=== PATIENT | male | born 1955 | race Caucasian/White ===

== ENCOUNTER 2017-03-17 14:06 | Observation (INO) | payer MEDICARE, OTHER ==
[~2017-03-17] VITALS: Ht 170.2 cm; Wt 90.0 kg
[~2017-03-17 14:06] MED LIST: ACET-1359 PO; ALLO300T46; AMLO-147 PO; BENA40TA54 PO; FAMO40OR PO; GABA-526 PO; HYD25 PO; LEVE500T8 PO; OMEG-135 PO; PRAV20TA63 PO; SERT-165 PO
[2017-03-17 14:28] LABS: ADD SCAN DIFF NO
[2017-03-17 14:32] LABS: BASOPHILS % 0.4 % (0.0-2.0); EOSINOPHILS # 0.2 10^3/ul (0.0-0.5); EOSINOPHILS % 2.9 % (0.0-7.0); HEMATOCRIT 41.3 % (42.0-52.0); HEMOGLOBIN 13.9 g/dl (14.0-18.0); LYMPHOCYTES # 1.7 10^3/ul (0.8-2.9); MEAN CORPUSCULAR HEMOGLOBIN 29.5 pg (29.0-33.0); MEAN CORPUSCULAR HGB CONC 33.7 g/dl (32.0-37.0); MEAN CORPUSCULAR VOLUME 87.7 fl (82.0-101.0); MEAN PLATELET VOLUME 10.6 fl (7.4-10.4); MONOCYTE # 0.5 10^3/ul (0.3-0.9); MONOCYTES % 6.1 % (0.0-11.0); NEUTROPHIL # 5.1 10^3/ul (1.6-7.5); NEUTROPHILS % 67.3 % (39.0-77.0); PLATELET COUNT 194 10^3/UL (140-415); RED BLOOD COUNT 4.71 10^6/ul (4.70-6.10); RED CELL DISTRIBUTION WIDTH 13.9 % (11.5-14.5); WHITE BLOOD COUNT 7.6 10^3/ul (4.8-10.8)
--- NOTE | 2017-03-17 14:46 | RADRPT ---
PROCEDURE: Chest x-ray CLINICAL INDICATION: Chest pain TECHNIQUE: Chest single view COMPARISON: 10/03/2009 FINDINGS: The heart is normal in size. The pulmonary vessels are normal in caliber. There is chronic reticul ar scarring in the right upper lobe and left lower lobe with linear areas of calcification. This ma y be related to old granulomatous disease. No acute infiltrates are identified. Costophrenic angle s are sharp and the bony thorax is unremarkable. IMPRESSION: 1. Stable linear and reticular scarring in the right upper lobe and left lower lobe with calcificat ion. This may be related to old granulomatous disease. 2. No acute cardiopulmonary disease. 3. No significant change RPTAT: HH .Ej Mitchell MD, MD Date Time Electronically viewed and signed by .Ej Mitchell MD, on 03/17/2017 14:46 .W/
[2017-03-17 14:49] LABS: ANION GAP 13 (8-16); BLOOD UREA NITROGEN 16 mg/dl (7-20); CALCIUM 9.1 mg/dl (8.4-10.2); CARBON DIOXIDE 23 mmol/L (21-31); CHLORIDE 107 mmol/L (97-110); GLUCOSE 161 mg/dl (70-220); POTASSIUM 3.6 mmol/L (3.5-5.1); SODIUM 139 mmol/L (135-144)
[2017-03-17 14:50] LABS: INR 0.94; PROTIME 12.6 Sec (12.2-14.2)
[2017-03-17 14:51] LABS: PARTIAL THROMBOPLASTIN TIME 29.7 Sec (25.0-35.0)
[2017-03-17 15:05] LABS: B-TYPE NATRIURETIC PEPTIDE < 11 PG/ML (0-125); TROPONIN-I < 0.012 ng/ml (0.00-0.12)
[2017-03-17] MEDS ORDERED: FAMO20TA18 PO (15:14)
[2017-03-17] MEDS ORDERED: ALLO300T2 PO (15:15)
[2017-03-17] MEDS ORDERED: CYAN500T46 PO (15:15)
[2017-03-17] MEDS ORDERED: CYCL-319 PO (15:16)
[2017-03-17] MEDS ORDERED: BENA40TA41 PO (15:16)
[2017-03-17] MEDS ORDERED: AMLO-147 PO (15:17)
[2017-03-17] MEDS ORDERED: GABA300C16 PO (15:17)
[2017-03-17] MEDS ORDERED: ATOR20TA38 PO (15:20)
[2017-03-17] MEDS ORDERED: SERT-165 PO (15:20)
[2017-03-17] MEDS ORDERED: BUPR75TA9 PO (15:21)
[2017-03-17] MEDS ORDERED: LEVE10006 PO (15:23)
[2017-03-17] MEDS ORDERED: TRAZ50TA18 PO (15:23)
[2017-03-17] MEDS ORDERED: ASPIRIN 81 MG TAB PO ONE (16:00)
--- NOTE | 2017-03-17 16:18 | ERA ---
ER Documentation Chief Complaint Date/Time DATE: 03/17/17 TIME: 16:17 Chief Complaint BIBA FOR NON RADIATING CP HPI This is a 61-year-old male with a history of hypertension hyperlipidemia who presents to the emergency room after being brought in by ambulance for chest pain. The patient localizes chest pain to the center of his chest and describes as a sharp pain with no radiation. He denies any shortness of breath , diaphoresis or nausea associated with this. The patient came to the emergency room today for evaluation. Patient was given aspirin 160 mg in route , and sublingual nitro with mild relief of his pain. ROS All systems reviewed and are negative except as per history of present illness. Medications Home Meds Reported Medications Levetiracetam* (Levetiracetam*) 1,000 Mg Tablet, 2000 MG PO BID, TAB 03/17/17 Trazodone Hcl* (Desyrel*) 50 Mg Tab, 25 MG PO QHS, #30 TAB 03/17/17 Bupropion Hcl* (Bupropion Hcl*) 75 Mg Tablet, 75 MG PO DAILY, TAB 03/17/17 Sertraline Hcl* (Sertraline Hcl*) 100 Mg Tablet, 100 MG PO DAILY, #30 TAB 03/17/17 Atorvastatin Calcium* (Atorvastatin Calcium*) 20 Mg Tablet, 20 MG PO QHS, #30 TAB 03/17/17 Gabapentin* (Gabapentin*) 300 Mg Capsule, 300 MG PO TID, #90 CAP 03/17/17 Amlodipine Besylate* (Amlodipine Besylate*) 10 Mg Tablet, 10 MG PO DAILY, #30 TAB 03/17/17 Benazepril Hcl* (Benazepril Hcl*) 40 Mg Tablet, 40 MG PO DAILY, #30 TAB 03/17/17 Cyclobenzaprine Hcl* (Cyclobenzaprine Hcl*) 10 Mg Tablet, 10 MG PO TID Y for PRN , #90 TAB 03/17/17 Allopurinol* (Allopurinol*) 300 Mg Tablet, 300 MG PO DAILY, TAB 03/17/17 Cyanocobalamin* (Vitamin B12*) 500 Mcg Tab, 500 MCG PO DAILY, TAB 03/17/17 Famotidine* (Famotidine*) 20 Mg Tablet, 20 MG PO BID, #60 TAB 03/17/17 Discontinued Reported Medications Gabapentin* (Gabapentin*) 600 Mg Tablet, PO TID 08/20/13 Levetiracetam* (Levetiracetam*) 500 Mg Tablet, PO DAILY 08/20/13 Benazepril Hcl* (Lotensin*) 40 Mg Tablet, 40 MG PO DAILY 08/20/13 Pravastatin Sodium* (Pravastatin Sodium*) 20 Mg Tablet, 20 MG PO HS 08/20/13 Hydrochlorothiazide* (Hydrochlorothiazide*) 25 Mg Tab, 25 MG PO DAILY 08/20/13 Famotidine* (Famotidine*) 40 Mg/5 Ml Oral.susp, 20 MG PO BID 08/20/13 Amlodipine Besylate* (Amlodipine Besylate*) 10 Mg Tablet, 10 MG PO DAILY 08/20/13 Sertraline Hcl* (Sertraline Hcl*) 100 Mg Tablet, 100 MG PO DAILY 08/20/13 Fish Oil* (Fish Oil*) 1,000 Mg Cap, 1000 MG PO DAILY 08/20/13 Acetaminophen (TYLENOL 500 MG TAB) 500 Mg Tab, 500 MG PO Y 08/20/13 Allopurinol* (Zyloprim*) 300 Mg Tablet 01/16/11 Allergies Allergies: Coded Allergies: No Known Allergy (Unverified , 03/17/17) PMhx/Soc History of Surgery: No Anesthesia Reaction: No Hx Neurological Disorder: Yes (EPILEPSY) Hx Respiratory Disorders: No Hx Cardiac Disorders: Yes (HTN) Hx Psychiatric Problems: No Hx Miscellaneous Medical Probl: Yes (DM , STOMACH CA , ANEMIA ) Hx Alcohol Use: No Hx Substance Use: No Hx Tobacco Use: No Smoking Status: Never smoker Physical Exam Vitals Vital Signs Date Time Temp Pulse Resp B/P Pulse Ox O2 Delivery O2 Flow Rate FiO2 03/17/17 14:24 98.6 91 16 136/93 94 Physical Exam INITIAL VITAL SIGNS: Reviewed by me GENERAL: The patient is well developed and appropriate for usual state of health in no apparent distress HEENT: Pupils equal, round, and reactive to light. EOMI. There is no scleral icterus. NECK: C-spine is soft and supple, there is no meningismus. There is no cervical lymphadenopathy. LUNGS: Clear to auscultation bilaterally. There are no rales, wheezes or rhonchi. HEART: Regular rate and rhythm, no murmurs, clicks, rubs or gallops. ABDOMEN: Soft, non-tender, non-distended. There are bowel sounds in all four quadrants. No rebound or guarding. EXTREMITIES: There is no peripheral cyanosis or edema. No focal swelling or erythema. NEUROLOGICAL: The patient moves all four extremities with 5/5 strength. Cranial nerves II - XII are intact. Normal gait. Alert and oriented SKIN: There is no apparent rash or petechiae. HEME/LYMPHATIC: There is no evidence of excessive bruising or lymphedema. PSYCHIATRIC: The patient does not appear anxious or depressed. Result Diagram: 03/17/17 1420 03/17/17 1420 Results 24 hrs Laboratory Tests Test 03/17/17 14:20 White Blood Count 7.610^3/ul Red Blood Count 4.7110^6/ul Hemoglobin 13.9g/dl Hematocrit 41.3% Mean Corpuscular Volume 87.7fl Mean Corpuscular Hemoglobin 29.5pg Mean Corpuscular Hemoglobin Concent 33.7g/dl Red Cell Distribution Width 13.9% Platelet Count 45625^3/UL Mean Platelet Volume 10.6fl Neutrophils % 67.3% Lymphocytes % 23.0% Monocytes % 6.1% Eosinophils % 2.9% Basophils % 0.4% Nucleated Red Blood Cells % 0.0/100WBC Neutrophils # 5.110^3/ul Lymphocytes # 1.710^3/ul Monocytes # 0.510^3/ul Eosinophils # 0.210^3/ul Basophils # 0.010^3/ul Nucleated Red Blood Cells # 0.010^3/ul Prothrombin Time 12.6Sec Prothrombin Time Ratio 1.0 INR International Normalized Ratio 0.94 Activated Partial Thromboplast Time 29.7Sec Sodium Level 139mmol/L Potassium Level 3.6mmol/L Chloride Level 107mmol/L Carbon Dioxide Level 23mmol/L Anion Gap 13 Blood Urea Nitrogen 16mg/dl Creatinine 0.80mg/dl Glucose Level 161mg/dl Calcium Level 9.1mg/dl Troponin I < 0.012ng/ml B-Type Natriuretic Peptide < 11PG/ML Current Medications Medications (Trade) Dose Ordered Sig/Mark Route PRN Reason Start Time Stop Time Status Last Admin Dose Admin Aspirin (Aspirin) 162 mg ONCE ONCE PO 03/17/17 16:00 03/17/17 16:01 DC Procedures/MDM EKG: Rate/Rhythm: [Normal Sinus Rhythm] QRS, ST, T-waves: [No changes consistent w/ acute ischemia] Impression: [No evidence of ischemia or arrhythmia] Chest X-ray 1V Interpreted by me: Soft Tissue: No acute abnormalities Bones: No acute abnormalities Mediastinum/Cardiac Silhouette/Lungs: [No acute abnormalities] This 61-year-old male presents to the ER for evaluation of chest pain. When I evaluated this patient he was hemodynamically stable. Lab work was obtained including troponin which was negative. Chest x-ray is clear at this time except for scarring in the lung tissue. EKG is nonischemic however given this patient's age, symptoms and risk factors he will be placed in for admission at this time for ACS rule out. He will be admitted under the care of Dr. Mccoy on the telemetry floor. Departure Diagnosis: Primary Impression: Chest pain Condition: YULI Fields DO Mar 17, 2017 16:18
[2017-03-17] MEDS ORDERED: ACETAMINOPHEN 325 MG TAB PO PRN ×2 (16:30→17:00)
[2017-03-17] MEDS ORDERED: ONDANSETRON 4 MG INJ IV PRN ×2 (16:30→17:00)
[2017-03-17] MEDS ORDERED: MAGNESIUM HYDROXIDE 30ML CUP PO PRN (17:00)
[2017-03-17] MEDS ORDERED: HYDROCODONE/APAP (5/325) TAB PO PRN (17:00)
[2017-03-17] MEDS ORDERED: NITROGLYCERIN (SL) 0.4 MG TAB SL PRN (17:00)
[2017-03-17] MEDS ORDERED: BISACODYL (EC) 5 MG TAB PO PRN (17:00)
[2017-03-17] MEDS ORDERED: morphine 2 MG INJ IV PRN (17:00)
[2017-03-17] MEDS ORDERED: NACL 0.9% 3 ML SYG IV SCH (17:00)
--- NOTE | 2017-03-17 17:22 | HP ---
Date/Time of Note Date/Time of Note DATE: 03/17/17 TIME: 17:17 Assessment/Plan VTE Prophylaxis VTE Prophylaxis Intervention: LMWH Lines/Catheters IV Catheter Type (from [facility]): [place] Assessment/Plan Chief Complaint/Hosp Course 1. Chest pain. To rule out acute coronary syndrome. Serial troponins will be ordered. A 2D echocardiogram will be ordered. The patient will be continued on aspirin. Cardiology consult will be obtained. 2. Essential hypertension. The patient's home antihypertensives will be resumed. He will also be started on PRN antihypertensives for any systolic blood pressure readings greater than 160 mmHg. 3. Gout. The patient's allopurinol will be resumed. A serum uric acid level will be obtained. 4. Seizure disorder. The patient's Keppra will be resumed. 5. Chronic back pain. The patient will be provided with adequate pain control. 6. Depression. The patient will be continued on antidepressants. Plan: The patient will be admitted to inpatient telemetry floor. The patient will be started on a low-cholesterol diet. The patient will be started on DVT prophylaxis and gastrointestinal prophylaxis. The patient will remain a full code. Activities will be with assist. The rest of the patient's management will be based on the clinical course and the results of diagnostic studies. Based on the patient's clinical presentation, he most probably requires at least 1 midnight's stay for further management and evaluation of his clinical presentation. The case and management of this patient was fully discussed with . Problems: HPI/ROS Admit Date/Time Admit Date/Time Hx of Present Illness Reason for admission: Chest pain. Consultants 1. Xavier Carballo MD, Cardiology. This is a 61-year-old male with past medical history of essential hypertension, dyslipidemia, obesity, chronic back pain, depression, gout, and seizure disorder who came into the emergency room with chief complaint of chest pain. The patient localizes his chest pain at the center of his chest with no associated radiation. Patient denied any nausea or diaphoresis. However, the patient complained of some dyspnea associated with the same. The patient denied any fevers. He denied any chills. Patient denied any cough. He denied any abdominal pain diarrhea hematochezia dysuria or hematuria. In the emergency room, patient's initial troponins were negative. The patient' s chest x-ray was negative for any acute findings. The patient's solid EKG showed normal sinus rhythm. Patient was treated with aspirin 162 mg in the emergency room. ROS Constitutional: no complaints Eyes: no complaints ENT: no complaints Respiratory: shortness of breath Cardiovascular: chest pain Gastrointestinal: no complaints Genitourinary: no complaints Musculoskeletal: back pain Skin: no complaints Neurologic: no complaints Endocrine: no complaints Lymphatic: no complaints Psychological: depression Immunologic: no complaints PMH/Family/Social Past Medical History Medical History: hypertension, other (depression, gout, chronic back pain, seizure disorder) Social History Alcohol Use: none Smoking Status: Never smoker Drug Use: none Exam/Review of Systems Vital Signs Vitals Vital Signs Date Time Temp Pulse Resp B/P Pulse Ox O2 Delivery O2 Flow Rate FiO2 03/17/17 14:24 98.6 91 16 136/93 94 Exam Exam General: Obese 61 year-old male lying in bed in no apparent distress. HEENT: Normocephalic, atraumatic. Eyes: Anicteric sclerae, conjunctivae clear. ENT: Nasal septum midline, oral mucosa moist. Neck supple, no JVD noticed. Respiratory: Bilaterally clear breath sounds. No use of accessory muscles of respiration. No adventitious breath sounds. Cardiovascular: S1, S2 heard. No murmurs or gallops. Abdomen: Soft, nontender, and nondistended. Bowel sounds positive in all 4 quadrants. Genitourinary: Deferred. Extremities: No cyanosis, no clubbing, no edema. Peripheral pulses palpable. Neurologic: Cranial nerves II through XII grossly intact. The patient is awake, alert, and oriented. Skin: Normal skin turgor. No skin rashes. Labs Result Diagram: 03/17/17 1420 03/17/17 1420 Medications Medications Current Medications Ondansetron HCl (Zofran Inj) 4 mg Q6H PRN IV NAUSEA AND/OR VOMITING; Start 07/24 at 17:00; Status UNV Aspirin (Aspirin) 81 mg DAILY PO ; Start 03/18/17 at 09:00; Status UNV Nitroglycerin (Nitroglycerin (Sl Tab) 0.4 Mg) 1 tab Q5M PRN SL CHEST PAIN; Start 03/17/17 at 17:00; Status UNV Acetaminophen (Tylenol Tab) 650 mg Q6H PRN PO PAIN LEVEL 1-3 OR FEVER; Start at 17:00; Status UNV Acetaminophen/ Hydrocodone Bitart ([place] (5/325)) 1 tab Q6H PRN PO PAIN LEVEL 4 -6; Start 03/17/17 at 17:00; Status UNV Morphine Sulfate (morphine) 2 mg Q4H PRN IV PAIN LEVEL 7-10; Start 03/17/17 at 17:00; Status UNV Magnesium Hydroxide (Milk Of Mag) 30 ml DAILY PRN PO CONSTIPATION; Start at 17:00; Status UNV Bisacodyl (Dulcolax) 5 mg DAILY PRN PO CONSTIPATION; Start 03/17/17 at 17:00; Status UNV Famotidine (Pepcid) 20 mg Q12 PO ; Start 03/17/17 at 21:00; Status UNV Enoxaparin Sodium (Lovenox) 40 mg DAILY SC ; Start 03/18/17 at 09:00; Status UNV Hydralazine HCl (Apresoline) 10 mg Q6H PRN IV SBP>160; Start 03/17/17 at 17:30 ; Status UNV Allopurinol (Zyloprim) 300 mg DAILY PO ; Start 03/18/17 at 09:00; Status UNV Amlodipine Besylate (Norvasc) 10 mg DAILY PO ; Start 03/18/17 at 09:00; Status UNV Atorvastatin Calcium (Lipitor) 20 mg QHS PO ; Start 03/17/17 at 21:00; Status UNV Benazepril HCl (Lotensin) 40 mg DAILY PO ; Start 03/18/17 at 09:00; Status UNV Bupropion HCl (Wellbutrin) 75 mg DAILY PO ; Start 03/18/17 at 09:00; Status UNV Cyanocobalamin (Vitamin B12) 500 mcg DAILY PO ; Start 03/18/17 at 09:00; Status UNV Cyclobenzaprine HCl (Flexeril) 10 mg TID PRN PO PRN; Start 03/17/17 at 17:30; Status UNV Gabapentin (Neurontin) 300 mg TID PO ; Start 03/17/17 at 21:00; Status UNV Levetiracetam (Keppra) 2,000 mg BID PO ; Start 03/17/17 at 21:00; Status UNV Sertraline HCl (Zoloft) 100 mg DAILY PO ; Start 03/18/17 at 09:00; Status UNV Trazodone HCl (Desyrel) 25 mg QHS PO ; Start 03/17/17 at 21:00; Status UNV Procedures Procedures CXR IMPRESSION: 1. Stable linear and reticular scarring in the right upper lobe and left lower lobe with calcification. This may be related to old granulomatous disease. 2. No acute cardiopulmonary disease. 3. No significant change CHRISTY BARROW NP Mar 17, 2017 17:22
[2017-03-17] MEDS ORDERED: CYCLOBENZAPRINE 10 MG TAB PO PRN (17:30)
[2017-03-17] MEDS ORDERED: hydrALAzine 20 MG INJ IV PRN (17:30)
[2017-03-17 19:12] VITALS: PULSE 64
--- NOTE | 2017-03-17 19:16 | CONS ---
Date/Time of Note Date/Time of Note DATE: 03/17/17 TIME: 19:08 Assessment/Plan Assessment/Plan Chief Complaint/Hosp Course Chest pain: Atypical, right sided pulsation. EKG with RBBB and no ischemic changes. Initial trop negative. Would rule out and check an echo, otherwise no testing indicated. 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 An parts interpreter was used. The pt is tearful throughout the interview. When asked why he came in, he first started to complain of his right knee pain and meniscal issues. Then he mentioned that he cannot open his eyes and when he does , he sees blurry and his eyes shut. Then he mentioned that he uses BiPAP at nights and that he is always SOB. He also mentioned right sided chest wall "pulsations". He also mentioned that the blurry vision started after he had a seizure today. However he tells me that he started to have convulsions and was completely aware of what was going on and had to hold on to a nearby person so he wouldnt fall. per hPI Eyes: no complaints ENT: no complaints Respiratory: shortness of breath Cardiovascular: chest pain Gastrointestinal: no complaints Genitourinary: no complaints Musculoskeletal: back pain Skin: no complaints Neurologic: no complaints Lymphatic: no complaints Psychological: depression Immunologic: no complaints Past Medical History per HPI Medical History: hypertension, other (depression, gout, chronic back pain, seizure disorder) Social History Alcohol Use: none Smoking Status: Never smoker Drug Use: none Exam/Review of Systems Vital Signs Vitals Vital Signs Date Time Temp Pulse Resp B/P Pulse Ox O2 Delivery O2 Flow Rate FiO2 03/17/17 18:08 72 20 127/85 98 Room Air 03/17/17 14:24 98.6 Exam Constitutional: alert, oriented Psych: nl mood/affect, no complaints Head: atraumatic, normocephalic Eyes: nl conjunctiva Neck: No jvd Respiratory: clear to auscultation, No crackles/rales Cardiovascular: regular rate and rhythm, No edema Gastrointestinal: non-tender, soft Neurological: nl speech, No nl mental status Results Result Diagram: 03/17/17 1420 03/17/17 1420 Results 24 hrs Laboratory Tests Test 03/17/17 14:20 White Blood Count 7.6 Red Blood Count 4.71 Hemoglobin 13.9 L Hematocrit 41.3 L Mean Corpuscular Volume 87.7 Mean Corpuscular Hemoglobin 29.5 Mean Corpuscular Hemoglobin Concent 33.7 Red Cell Distribution Width 13.9 Platelet Count 194 Mean Platelet Volume 10.6 H Neutrophils % 67.3 Lymphocytes % 23.0 Monocytes % 6.1 Eosinophils % 2.9 Basophils % 0.4 Nucleated Red Blood Cells % 0.0 Neutrophils # 5.1 Lymphocytes # 1.7 Monocytes # 0.5 Eosinophils # 0.2 Basophils # 0.0 Nucleated Red Blood Cells # 0.0 Prothrombin Time 12.6 Prothrombin Time Ratio 1.0 INR International Normalized Ratio 0.94 Activated Partial Thromboplast Time 29.7 Sodium Level 139 Potassium Level 3.6 Chloride Level 107 Carbon Dioxide Level 23 Anion Gap 13 Blood Urea Nitrogen 16 Creatinine 0.80 Glucose Level 161 Hemoglobin A1c 6.2 H Uric Acid 4.3 Calcium Level 9.1 Troponin I < 0.012 B-Type Natriuretic Peptide < 11 Free Thyroxine 1.07 Medications Medications Current Medications Ondansetron HCl (Zofran Inj) 4 mg Q6H PRN IV NAUSEA AND/OR VOMITING; Start 07/24 at 17:00 Nitroglycerin (Nitroglycerin (Sl Tab) 0.4 Mg) 1 tab Q5M PRN SL CHEST PAIN; Start 03/17/17 at 17:00 Acetaminophen (Tylenol Tab) 650 mg Q6H PRN PO PAIN LEVEL 1-3 OR FEVER; Start at 17:00 Acetaminophen/ Hydrocodone Bitart ([place] (5/325)) 1 tab Q6H PRN PO PAIN LEVEL 4 -6; Start 03/17/17 at 17:00 Morphine Sulfate (morphine) 2 mg Q4H PRN IV PAIN LEVEL 7-10; Start 03/17/17 at 17:00 Magnesium Hydroxide (Milk Of Mag) 30 ml DAILY PRN PO CONSTIPATION; Start at 17:00 Bisacodyl (Dulcolax) 5 mg DAILY PRN PO CONSTIPATION; Start 03/17/17 at 17:00 Famotidine (Pepcid) 20 mg Q12 PO ; Start 03/17/17 at 21:00 Enoxaparin Sodium (Lovenox) 40 mg DAILY SC ; Start 03/18/17 at 09:00 Hydralazine HCl (Apresoline) 10 mg Q6H PRN IV SBP>160; Start 03/17/17 at 17:30 Allopurinol (Zyloprim) 300 mg DAILY PO ; Start 03/18/17 at 09:00 Amlodipine Besylate (Norvasc) 10 mg DAILY PO ; Start 03/18/17 at 09:00 Atorvastatin Calcium (Lipitor) 20 mg QHS PO ; Start 03/17/17 at 21:00 Benazepril HCl (Lotensin) 40 mg DAILY PO ; Start 03/18/17 at 09:00 Bupropion HCl (Wellbutrin) 75 mg DAILY PO ; Start 03/18/17 at 09:00 Cyanocobalamin (Vitamin B12) 500 mcg DAILY PO ; Start 03/18/17 at 09:00 Cyclobenzaprine HCl (Flexeril) 10 mg TID PRN PO PRN; Start 03/17/17 at 17:30 Gabapentin (Neurontin) 300 mg TID PO ; Start 03/17/17 at 21:00 Levetiracetam (Keppra) 2,000 mg BID PO ; Start 03/17/17 at 21:00 Sertraline HCl (Zoloft) 100 mg DAILY PO ; Start 03/18/17 at 09:00 Trazodone HCl (Desyrel) 25 mg QHS PO ; Start 03/17/17 at 21:00 Aspirin (Halfprin) 81 mg DAILY PO ; Start 03/18/17 at 09:00 ANGELA MARIA Mar 17, 2017 19:16
[2017-03-17 20:00] VITALS: Ht 170.2 cm; Wt 90.0 kg
[2017-03-17 20:01] VITALS: PULSE 66
[2017-03-17 20:06] VITALS: BP 146/83; RESP 20
[2017-03-17] MEDS: LEVETIRACETAM 500 MG TAB PO SCH (20:56)
[2017-03-17] MEDS: ATORVASTATIN 20 MG TAB PO SCH (20:56)
[2017-03-17] MEDS: FAMOTIDINE 20 MG TAB PO SCH (20:56)
[2017-03-17] MEDS: traZODone 50 MG TAB PO SCH (20:57)
[2017-03-17] MEDS: GABAPENTIN 300 MG CAP PO SCH (20:57)
[2017-03-17 21:34] LABS: CREATINE KINASE 81 IU/L (23-200)
[2017-03-17 21:41] LABS: CK-MB 0.53 ng/ml (0.0-2.4)
[2017-03-17 21:54] LABS: TROPONIN-I < 0.012 ng/ml (0.00-0.12)
[2017-03-17 23:50] VITALS: BP 136/72; RESP 18
[2017-03-18] VITALS (11 sets, daily range): BP systolic 121–134; BP diastolic 68–81; PULSE 62–89; RESP 16–20
[2017-03-18 02:15] LABS: CREATINE KINASE 65 IU/L (23-200)
[2017-03-18 02:26] LABS: CK-MB 0.47 ng/ml (0.0-2.4); TROPONIN-I < 0.012 ng/ml (0.00-0.12)
[2017-03-18 07:10] LABS: ADD SCAN DIFF NO
[2017-03-18 07:12] LABS: BASOPHILS % 0.6 % (0.0-2.0); EOSINOPHILS # 0.2 10^3/ul (0.0-0.5); EOSINOPHILS % 3.8 % (0.0-7.0); HEMATOCRIT 41.5 % (42.0-52.0); HEMOGLOBIN 13.2 g/dl (14.0-18.0); LYMPHOCYTES # 1.6 10^3/ul (0.8-2.9); LYMPHOCYTES % 26.1 % (15.0-51.0); MEAN CORPUSCULAR HEMOGLOBIN 28.4 pg (29.0-33.0); MEAN CORPUSCULAR HGB CONC 31.8 g/dl (32.0-37.0); MEAN CORPUSCULAR VOLUME 89.2 fl (82.0-101.0); MEAN PLATELET VOLUME 10.7 fl (7.4-10.4); MONOCYTE # 0.5 10^3/ul (0.3-0.9); MONOCYTES % 8.6 % (0.0-11.0); NEUTROPHIL # 3.8 10^3/ul (1.6-7.5); NEUTROPHILS % 60.6 % (39.0-77.0); PLATELET COUNT 192 10^3/UL (140-415); RED BLOOD COUNT 4.65 10^6/ul (4.70-6.10); RED CELL DISTRIBUTION WIDTH 14.1 % (11.5-14.5); WHITE BLOOD COUNT 6.3 10^3/ul (4.8-10.8)
[2017-03-18 08:00] LABS: ALBUMIN 4.2 g/dl (3.3-4.9); ALBUMIN/GLOBULIN RATIO 1.68; BILIRUBIN,INDIRECT 0.2 mg/dl (0-1.1); BILIRUBIN,TOTAL 0.2 mg/dl (0.2-1.3); CALCIUM 9.1 mg/dl (8.4-10.2); CHOL/HDL RATIO 3.9 RATIO; CREATININE 0.81 mg/dl (0.61-1.24); MAGNESIUM 2.2 mg/dl (1.7-2.5); TOTAL PROTEIN 6.7 g/dl (6.1-8.1)
[2017-03-18] MEDS ORDERED: ASPIRIN 81 MG TAB PO SCH (09:00)
[2017-03-18] MEDS ORDERED: SERTRALINE 100 MG TAB PO SCH (09:00)
[2017-03-18] MEDS: AMLODIPINE 10 MG TAB PO SCH (09:11)
[2017-03-18] MEDS: ASPIRIN (EC) 81 MG TAB PO SCH (09:11)
[2017-03-18] MEDS: ALLOPURINOL 300 MG TAB PO SCH (09:11)
[2017-03-18] MEDS: CYANOCOBALAMIN 500 MCG TAB PO SCH (09:11)
[2017-03-18] MEDS: BUPROPION 75 MG TAB PO SCH (09:11)
[2017-03-18] MEDS: BENAZEPRIL 40 MG TAB PO SCH (09:11)
[2017-03-18] MEDS: GABAPENTIN 300 MG CAP PO SCH ×3 (09:11→20:40)
[2017-03-18] MEDS: FAMOTIDINE 20 MG TAB PO SCH ×2 (09:11→20:40)
[2017-03-18] MEDS: LEVETIRACETAM 500 MG TAB PO SCH ×2 (09:14→20:39)
[2017-03-18] MEDS: ENOXAPARIN 40 MG/0.4 ML SYG SC SCH (09:15)
--- NOTE | 2017-03-18 09:59 | RADRPT ---
Echocardiogram Report Patient Name: SARAH PASCUAL Gender: Male Date: 1955 Study Date: 18-Mar-2017 Furniture Decals Inspector: Aida Nguyen [facility] Location: [id number] Ref. Physician: CHRISTY BARROW Quality: Good Procedures: Transthoracic echocardiogram with complete 2D, M-Mode, and doppler examination. Indications: Chest Pain. 2D/M Mode Doppler Measurement Value Normal Ranges Measurement Value Normal Ranges LVIDd 2D 5.1 3.5 - 5.6 cm AV Peak Bridger 1.1 m/sec LVIDs 2D 2.9 2.1 - 4.1 cm AV Peak PG 5.1 mmHg LVPWd 2D 0.9 0.6 - 1.1 cm LVOT Peak [place] 0.8 m/sec IVSd 2D 0.9 0.6 - 1.1 cm LVOT Peak PG 2.8 mmHg AoR Diam 2D 3.5 2.0 - 3.7 cm MV E Peak [place] 0.6 m/sec EDV 2D 125.3 cm3 MV A Peak [place] 0.5 m/sec ESV 2D 25.3 cm3 MV E/A 1.2 LA Dimen 2D 3.6 2.3 - 4.0 cm MV Decel Time 226 msec MV Decel Mot[place] 3 MV E/A 1.2 TR Peak Bridger 2.1 m/sec TR Peak PG 17.6 mmHg RVSP 21.0 mmHg Findings Left Ventricle: Normal left ventricular systolic function. Normal left ventricular cavity size. Normal left ventricular wall thickness. Ejection fraction is visually estimated at 65 %. Tissue Doppler/Mitral Doppler indices are within normal limits. Right Ventricle: Normal right ventricular size. Normal right ventricular systolic function. Left Atrium: The left atrium is normal in size. Right Atrium: The right atrium is normal in size. Mitral Valve: Normal appearance and function of the mitral valve with trace physiologic regurgitation. Aortic Valve: Normal appearance of the aortic valve. No significant aortic stenosis or insufficiency. Tricuspid Valve: Normal appearance of the tricuspid valve. Estimated peak PA systolic pressure 21 mmHg. There is trace tricuspid regurgitation. Pulmonic Valve: Normal pulmonic valve appearance. Pericardium: Normal pericardium with no significant pericardial effusion. Aorta: Normal aortic root. IVC: Normal size and normal respiratory collapse consistent with normal right atrial pressure. Conclusions Normal left ventricular systolic function. Normal left ventricular cavity size. Normal left ventricular wall thickness. Ejection fraction is visually estimated at 65 %. Tissue Doppler/Mitral Doppler indices are within normal limits. No significant valvular stenosis or regurgitation seen. Estimated peak PA systolic pressure 21 mmHg based on RA pressure of 3 mmHg. Electronically Signed By: Xavier Carballo 18-Mar-2017 09:58:31 -0700 Patient Name: SARAH PASCUAL Study Date: 18-Mar-2017 [id number]
--- NOTE | 2017-03-18 10:01 | CONS ---
Date/Time of Note Date/Time of Note DATE: 03/18/17 TIME: 09:58 Assessment/Plan Assessment/Plan Chief Complaint/Hosp Course Chest pain: Atypical, right sided pulsation. EKG with RBBB and no ischemic changes.Trops negative, echo unremarkable. No further testing ?Seizures/vision changes: resolved. Unclear if real symptoms SOB: unable to get much history from pt but clinically no CHF. EF is normal H/o seizure disorder HTN Gout -no further testing -will follow PRN Problems: Consultation Date/Type/Reason Admit Date/Time Mar 17, 2017 at 16:16 Initial Consult Date 03/17/17 Type of Consultation: Cardiology Referring Provider: CHRISTY BARROW NP 24 HR Interval Summary Free Text/Dictation No o/n events. Able to open eyes. Still having that right lateral chest pain Exam/Review of Systems Vital Signs Vitals Vital Signs Date Time Temp Pulse Resp B/P Pulse Ox O2 Delivery O2 Flow Rate FiO2 03/18/17 08:34 63 03/18/17 07:49 98.1 18 121/70 97 03/17/17 20:00 Nasal Cannula 2.0 Intake and Output 03/17/17 03/17/17 03/18/17 15:00 23:00 07:00 Output Total 700 ml Balance -700 ml Exam Constitutional: alert, oriented Psych: nl mood/affect, no complaints Head: atraumatic, normocephalic Neck: No jvd Respiratory: clear to auscultation, No crackles/rales Cardiovascular: regular rate and rhythm, No edema Gastrointestinal: non-tender, soft Neurological: nl mental status, nl speech Results Result Diagram: 03/18/1725 03/18/17 0625 Results 24 hrs Laboratory Tests Test 03/17/17 14:20 03/17/17 20:58 03/18/17 01:44 03/18/17 06:25 White Blood Count 7.6 6.3 Red Blood Count 4.71 4.65 L Hemoglobin 13.9 L 13.2 L Hematocrit 41.3 L 41.5 L Mean Corpuscular Volume 87.7 89.2 Mean Corpuscular Hemoglobin 29.5 28.4 L Mean Corpuscular Hemoglobin Concent 33.7 31.8 L Red Cell Distribution Width 13.9 14.1 Platelet Count 194 192 Mean Platelet Volume 10.6 H 10.7 H Neutrophils % 67.3 60.6 Lymphocytes % 23.0 26.1 Monocytes % 6.1 8.6 Eosinophils % 2.9 3.8 Basophils % 0.4 0.6 Nucleated Red Blood Cells % 0.0 0.0 Neutrophils # 5.1 3.8 Lymphocytes # 1.7 1.6 Monocytes # 0.5 0.5 Eosinophils # 0.2 0.2 Basophils # 0.0 0.0 Nucleated Red Blood Cells # 0.0 0.0 Prothrombin Time 12.6 Prothrombin Time Ratio 1.0 INR International Normalized Ratio 0.94 Activated Partial Thromboplast Time 29.7 Sodium Level 139 136 Potassium Level 3.6 4.0 Chloride Level 107 106 Carbon Dioxide Level 23 27 Anion Gap 13 7 L Blood Urea Nitrogen 16 18 Creatinine 0.80 0.81 Glucose Level 161 100 # Hemoglobin A1c 6.2 H 6.2 H Uric Acid 4.3 Calcium Level 9.1 9.1 Troponin I < 0.012 < 0.012 < 0.012 B-Type Natriuretic Peptide < 11 Thyroid Stimulating Hormone (TSH) 0.950 Free Thyroxine 1.07 Creatine Kinase 81 65 Creatine Kinase Index 0.7 0.7 Creatinine Kinase MB (Mass) 0.53 0.47 Magnesium Level 2.2 Total Bilirubin 0.2 Direct Bilirubin 0.00 Indirect Bilirubin 0.2 Aspartate Amino Transf (AST/SGOT) 19 Alanine Aminotransferase (ALT/SGPT) 36 Alkaline Phosphatase 88 Total Protein 6.7 Albumin 4.2 Globulin 2.50 Albumin/Globulin Ratio 1.68 Triglycerides Level 119 Cholesterol Level 107 LDL Cholesterol, Calculated 56 HDL Cholesterol 27 L Cholesterol/HDL Ratio 3.9 Medications Medications Current Medications Ondansetron HCl (Zofran Inj) 4 mg Q6H PRN IV NAUSEA AND/OR VOMITING; Start 07/24 at 17:00 Nitroglycerin (Nitroglycerin (Sl Tab) 0.4 Mg) 1 tab Q5M PRN SL CHEST PAIN; Start 03/17/17 at 17:00 Acetaminophen (Tylenol Tab) 650 mg Q6H PRN PO PAIN LEVEL 1-3 OR FEVER; Start at 17:00 Acetaminophen/ Hydrocodone Bitart ([place] (5/325)) 1 tab Q6H PRN PO PAIN LEVEL 4 -6; Start 03/17/17 at 17:00 Morphine Sulfate (morphine) 2 mg Q4H PRN IV PAIN LEVEL 7-10; Start 03/17/17 at 17:00 Magnesium Hydroxide (Milk Of Mag) 30 ml DAILY PRN PO CONSTIPATION; Start at 17:00 Bisacodyl (Dulcolax) 5 mg DAILY PRN PO CONSTIPATION; Start 03/17/17 at 17:00 Famotidine (Pepcid) 20 mg Q12 PO Last administered on 03/18/17 09:11; Admin Dose 20 MG; Start 03/17/17 at 21:00 Enoxaparin Sodium (Lovenox) 40 mg DAILY SC Last administered on 03/18/17 09:15 ; Admin Dose 40 MG; Start 03/18/17 at 09:00 Hydralazine HCl (Apresoline) 10 mg Q6H PRN IV SBP>160; Start 03/17/17 at 17:30 Allopurinol (Zyloprim) 300 mg DAILY PO Last administered on 03/18/17 09:11; Admin Dose 300 MG; Start 03/18/17 at 09:00 Amlodipine Besylate (Norvasc) 10 mg DAILY PO Last administered on 03/18/17 09: 11; Admin Dose 10 MG; Start 03/18/17 at 09:00 Atorvastatin Calcium (Lipitor) 20 mg QHS PO Last administered on 03/17/17 20: 56; Admin Dose 20 MG; Start 03/17/17 at 21:00 Benazepril HCl (Lotensin) 40 mg DAILY PO Last administered on 03/18/17 09:11; Admin Dose 40 MG; Start 03/18/17 at 09:00 Bupropion HCl (Wellbutrin) 75 mg DAILY PO Last administered on 03/18/17 09:11 ; Admin Dose 75 MG; Start 03/18/17 at 09:00 Cyanocobalamin (Vitamin B12) 500 mcg DAILY PO Last administered on 03/18/17 09 :11; Admin Dose 500 MCG; Start 03/18/17 at 09:00 Cyclobenzaprine HCl (Flexeril) 10 mg TID PRN PO PRN; Start 03/17/17 at 17:30 Gabapentin (Neurontin) 300 mg TID PO Last administered on 03/18/17 09:11; Admin Dose 300 MG; Start 03/17/17 at 21:00 Levetiracetam (Keppra) 2,000 mg BID PO Last administered on 03/18/17 09:14; Admin Dose 2,000 MG; Start 03/17/17 at 21:00 Sertraline HCl (Zoloft) 100 mg DAILY PO Last administered on 03/18/17 09:11; Admin Dose 100 MG; Start 03/18/17 at 09:00 Trazodone HCl (Desyrel) 25 mg QHS PO Last administered on 03/17/17 20:57; Admin Dose 25 MG; Start 03/17/17 at 21:00 Aspirin (Halfprin) 81 mg DAILY PO Last administered on 03/18/17 09:11; Admin Dose 81 MG; Start 03/18/17 at 09:00 ANGELA MARIA Mar 18, 2017 10:01
[2017-03-18 10:10] LABS: BARBITURATES Negative (NEGATIVE); BENZODIAZEPINES Negative (NEGATIVE); CANNABINOIDS Negative (NEGATIVE); COCAINE Negative (NEGATIVE); OPIATES Negative (NEGATIVE)
--- NOTE | 2017-03-18 12:56 | PN ---
Date/Time of Note Date/Time of Note DATE: 03/18/17 TIME: 12:38 Assessment/Plan VTE Prophylaxis VTE Prophylaxis Intervention: LMWH Lines/[facility]ters [facility] [place] Assessment/Plan Chief Complaint/Hosp Course 1. Chest pain, atypical, negative troponin and echo, no further testing needed per cardiology 2. Anxiety, likely panic attack, start on paxil, xanax prn 3. Essential hypertension. controlled, on benazepril 4. Seizure disorder by history and is on keppra, but clinically it is more likely a panic attack, neurology consult. 5. Chronic back pain. The patient provided with adequate pain control. 6. Depression. The patient will be continued on antidepressants, add paxil 7. Gout. The patient's allopurinol will be resumed. His serum uric acid level will be obtained. 8. DVT prophylaxis: lovenox Problems: Subjective 24 Hr Interval Summary Free Text/Dictation patient states he is having seizure now. He is full alert and oriented, intermittent tremor on right hand and both legs. states there is palpitation sensation on both groin, chest, difficulty in breathing, blurring vision, and claims his blood pressure is high even it is 121/80 that was just checked. Exam/Review of Systems Vital Signs Vitals Vital Signs Date Time Temp Pulse Resp B/P Pulse Ox O2 Delivery O2 Flow Rate FiO2 03/18/17 12:17 71 03/18/17 11:16 97.9 16 123/73 96 03/17/17 20:00 Nasal Cannula 2.0 Intake and Output 03/17/17 03/17/17 03/18/17 15:00 23:00 07:00 Output Total 700 ml Balance -700 ml Exam Constitutional: alert, oriented, other (anxious) Head: atraumatic, normocephalic Eyes: EOMI, PERRL, nl conjunctiva, nl lids ENMT: nl external ears & nose, nl lips & teeth, nl nasal mucosa & septum Neck: non-tender, supple Respiratory: clear to auscultation, normal air movement, No congested cough, No crackles/rales, No diminished breath sounds, No intercostal retraction, No labored breathing, No other, No respirations, No tactile fremitus, No wheezing Cardiovascular: nl pulses, regular rate and rhythm, No S3, No S4, No bruits, No diastolic murmur, No edema, No gallop, No irregular rhythm, No jugular venous distention (JVD), No murmurs/extra sounds, No other, No rub, No systolic murmur Gastrointestinal: nl liver, spleen, non-tender, soft, No ascites, No bowel sounds, No distended, No firm, No hepatomegaly, No mass , No other, No rebound or guarding, No splenomegaly, No surgical scars, No tender Musculoskeletal: nl extremities to inspection Extremities: normal pulses, No calf tenderness, No clubbing, No cyanosis, No edema, No other, No palpable cord, No pitting pedal edema, No tenderness Neurological: DIN[employer] SLATE II-XII intact, nl mental status, nl speech, nl strength Skin: nl turgor Lymph: nl lymph nodes Results Result Diagram: 03/18/1762403/18/17624 Results 24 hrs Laboratory Tests Test 03/17/17 14:20 03/17/17 20:58 03/18/17 01:44 03/18/17 06:25 White Blood Count 7.6 6.3 Red Blood Count 4.71 4.65 L Hemoglobin 13.9 L 13.2 L Hematocrit 41.3 L 41.5 L Mean Corpuscular Volume 87.7 89.2 Mean Corpuscular Hemoglobin 29.5 28.4 L Mean Corpuscular Hemoglobin Concent 33.7 31.8 L Red Cell Distribution Width 13.9 14.1 Platelet Count 194 192 Mean Platelet Volume 10.6 H 10.7 H Neutrophils % 67.3 60.6 Lymphocytes % 23.0 26.1 Monocytes % 6.1 8.6 Eosinophils % 2.9 3.8 Basophils % 0.4 0.6 Nucleated Red Blood Cells % 0.0 0.0 Neutrophils # 5.1 3.8 Lymphocytes # 1.7 1.6 Monocytes # 0.5 0.5 Eosinophils # 0.2 0.2 Basophils # 0.0 0.0 Nucleated Red Blood Cells # 0.0 0.0 Prothrombin Time 12.6 Prothrombin Time Ratio 1.0 INR International Normalized Ratio 0.94 Activated Partial Thromboplast Time 29.7 Sodium Level 139 136 Potassium Level 3.6 4.0 Chloride Level 107 106 Carbon Dioxide Level 23 27 Anion Gap 13 7 L Blood Urea Nitrogen 16 18 Creatinine 0.80 0.81 Glucose Level 161 100 # Hemoglobin A1c 6.2 H 6.2 H Uric Acid 4.3 Calcium Level 9.1 9.1 Troponin I < 0.012 < 0.012 < 0.012 B-Type Natriuretic Peptide < 11 Thyroid Stimulating Hormone (TSH) 0.950 Free Thyroxine 1.07 Creatine Kinase 81 65 Creatine Kinase Index 0.7 0.7 Creatinine Kinase MB (Mass) 0.53 0.47 Magnesium Level 2.2 Total Bilirubin 0.2 Direct Bilirubin 0.00 Indirect Bilirubin 0.2 Aspartate Amino Transf (AST/SGOT) 19 Alanine Aminotransferase (ALT/SGPT) 36 Alkaline Phosphatase 88 Total Protein 6.7 Albumin 4.2 Globulin 2.50 Albumin/Globulin Ratio 1.68 Triglycerides Level 119 Cholesterol Level 107 LDL Cholesterol, Calculated 56 HDL Cholesterol 27 L Cholesterol/HDL Ratio 3.9 Test 03/18/17 06:30 Urine Opiates Screen Negative Urine Barbiturates Negative Urine Amphetamines Screen Negative Urine Benzodiazepines Screen Negative Urine Cocaine Screen Negative Urine Cannabinoids Negative Medications Medications Current Medications Ondansetron HCl (Zofran Inj) 4 mg Q6H PRN IV NAUSEA AND/OR VOMITING; Start 07/24 at 17:00 Nitroglycerin (Nitroglycerin (Sl Tab) 0.4 Mg) 1 tab Q5M PRN SL CHEST PAIN; Start 03/17/17 at 17:00 Acetaminophen (Tylenol Tab) 650 mg Q6H PRN PO PAIN LEVEL 1-3 OR FEVER; Start at 17:00 Acetaminophen/ Hydrocodone Bitart ([place] (5/325)) 1 tab Q6H PRN PO PAIN LEVEL 4 -6; Start 03/17/17 at 17:00 Morphine Sulfate (morphine) 2 mg Q4H PRN IV PAIN LEVEL 7-10; Start 03/17/17 at 17:00 Magnesium Hydroxide (Milk Of Mag) 30 ml DAILY PRN PO CONSTIPATION; Start at 17:00 Bisacodyl (Dulcolax) 5 mg DAILY PRN PO CONSTIPATION; Start 03/17/17 at 17:00 Famotidine (Pepcid) 20 mg Q12 PO Last administered on 03/18/17 09:11; Admin Dose 20 MG; Start 03/17/17 at 21:00 Enoxaparin Sodium (Lovenox) 40 mg DAILY SC Last administered on 03/18/17 09:15 ; Admin Dose 40 MG; Start 03/18/17 at 09:00 Hydralazine HCl (Apresoline) 10 mg Q6H PRN IV SBP>160; Start 03/17/17 at 17:30 Allopurinol (Zyloprim) 300 mg DAILY PO Last administered on 03/18/17 09:11; Admin Dose 300 MG; Start 03/18/17 at 09:00 Amlodipine Besylate (Norvasc) 10 mg DAILY PO Last administered on 03/18/17 09: 11; Admin Dose 10 MG; Start 03/18/17 at 09:00 Atorvastatin Calcium (Lipitor) 20 mg QHS PO Last administered on 03/17/17 20: 56; Admin Dose 20 MG; Start 03/17/17 at 21:00 Benazepril HCl (Lotensin) 40 mg DAILY PO Last administered on 03/18/17 09:11; Admin Dose 40 MG; Start 03/18/17 at 09:00 Bupropion HCl (Wellbutrin) 75 mg DAILY PO Last administered on 03/18/17 09:11 ; Admin Dose 75 MG; Start 03/18/17 at 09:00 Cyanocobalamin (Vitamin B12) 500 mcg DAILY PO Last administered on 03/18/17 09 :11; Admin Dose 500 MCG; Start 03/18/17 at 09:00 Cyclobenzaprine HCl (Flexeril) 10 mg TID PRN PO PRN; Start 03/17/17 at 17:30 Gabapentin (Neurontin) 300 mg TID PO Last administered on 03/18/17 09:11; Admin Dose 300 MG; Start 03/17/17 at 21:00 Levetiracetam (Keppra) 2,000 mg BID PO Last administered on 03/18/17 09:14; Admin Dose 2,000 MG; Start 03/17/17 at 21:00 Sertraline HCl (Zoloft) 100 mg DAILY PO Last administered on 03/18/17 09:11; Admin Dose 100 MG; Start 03/18/17 at 09:00 Trazodone HCl (Desyrel) 25 mg QHS PO Last administered on 03/17/17 20:57; Admin Dose 25 MG; Start 03/17/17 at 21:00 Aspirin (Halfprin) 81 mg DAILY PO Last administered on 03/18/17 09:11; Admin Dose 81 MG; Start 03/18/17 at 09:00 GWENDOLYN PHILLIPS MD Mar 18, 2017 12:48
[2017-03-18] MEDS ORDERED: ALPRAZOLAM 0.25 MG TAB PO PRN (13:00)
[2017-03-18] MEDS ORDERED: PAROXETINE 10 MG TAB PO SCH (14:00)
[2017-03-18] MEDS: ATORVASTATIN 20 MG TAB PO SCH (20:40)
[2017-03-18] MEDS: traZODone 50 MG TAB PO SCH (20:40)
[2017-03-19] VITALS (8 sets, daily range): BP systolic 118–130; BP diastolic 66–73; PULSE 55–79; RESP 16–20
[2017-03-19] MEDS: BENAZEPRIL 40 MG TAB PO SCH (08:52)
[2017-03-19] MEDS: LEVETIRACETAM 500 MG TAB PO SCH (08:52)
[2017-03-19] MEDS: GABAPENTIN 300 MG CAP PO SCH ×2 (08:53→12:06)
[2017-03-19] MEDS: FAMOTIDINE 20 MG TAB PO SCH (08:53)
[2017-03-19] MEDS: AMLODIPINE 10 MG TAB PO SCH (08:53)
[2017-03-19] MEDS: ASPIRIN (EC) 81 MG TAB PO SCH (08:53)
[2017-03-19] MEDS: CYANOCOBALAMIN 500 MCG TAB PO SCH (08:53)
[2017-03-19] MEDS: ALLOPURINOL 300 MG TAB PO SCH (08:53)
[2017-03-19] MEDS: BUPROPION 75 MG TAB PO SCH (08:53)
[2017-03-19] MEDS: ENOXAPARIN 40 MG/0.4 ML SYG SC SCH (08:54)
[2017-03-19] MEDS ORDERED: PAROXETINE 20 MG TAB PO SCH (09:00)
--- NOTE | 2017-03-19 13:27 | DS ---
Date/Time of Note Date/Time of Note DATE: 03/19/17 TIME: 13:21 Discharge Summary Admission/Discharge Info Admit Date/Time Mar 17, 2017 at 16:16 Discharge Date/Time Discharge Diagnosis 1. Chest pain, atypical, negative troponin and echo, no further testing needed per cardiology 2. Anxiety, likely panic attack, follow up with PCP 3. Essential hypertension. controlled, on benazepril 4. Seizure disorder by history and is on keppra, follow up with PCP 5. Chronic back pain. The patient provided with adequate pain control. 6. Depression. The patient will be continued on antidepressants 7. Gout. on patient's allopurinol Patient Condition: Stable Hx of Present Illness This is a 61-year-old male with past medical history of essential hypertension, dyslipidemia, obesity, chronic back pain, depression, gout, and seizure disorder who came into the emergency room with chief complaint of chest pain. The patient localizes her chest pain at the center of his chest with no associated radiation. Patient denied any nausea or diaphoresis. However, the patient complained of some dyspnea associated with the same. The patient denied any fevers. He denied any chills. Patient denied any cough. He denied any abdominal pain diarrhea hematochezia dysuria or hematuria. In the emergency room, patient's initial troponins were negative. The patient' s chest x-ray was negative for any acute findings. The patient's solid EKG showed normal sinus rhythm. Patient was treated with aspirin 162 mg in the emergency room. Hospital Course For chest pain, troponin is negative. Echo is unremarkable. W[employer] Specialist does not recommend further cardiac workup since chest pain is atypical. Patient is on Keppra for seizure disorder. He had one spell while I was examining him. He was totally alert and oriented, shaking on right arm, with palpitation feeling on groins and blurring vision that sounds a panic attack to me. I will continue him on keppra and have him follow up with PCP outpatient. Home Meds Reported Medications Levetiracetam* (Levetiracetam*) 1,000 Mg Tablet, 2000 MG PO BID, TAB 03/17/17 Trazodone Hcl* (Desyrel*) 50 Mg Tab, 25 MG PO QHS, #30 TAB 03/17/17 Bupropion Hcl* (Bupropion Hcl*) 75 Mg Tablet, 75 MG PO DAILY, TAB 7/11/17 Sertraline Hcl* (Sertraline Hcl*) 100 Mg Tablet, 100 MG PO DAILY, #30 TAB 03/17/17 Atorvastatin Calcium* (Atorvastatin Calcium*) 20 Mg Tablet, 20 MG PO QHS, #30 TAB 03/17/17 Gabapentin* (Gabapentin*) 300 Mg Capsule, 300 MG PO TID, #90 CAP 03/17/17 Amlodipine Besylate* (Amlodipine Besylate*) 10 Mg Tablet, 10 MG PO DAILY, #30 TAB 03/17/17 Benazepril Hcl* (Benazepril Hcl*) 40 Mg Tablet, 40 MG PO DAILY, #30 TAB 03/17/17 Cyclobenzaprine Hcl* (Cyclobenzaprine Hcl*) 10 Mg Tablet, 10 MG PO TID Y for PRN , #90 TAB 03/17/17 Allopurinol* (Allopurinol*) 300 Mg Tablet, 300 MG PO DAILY, TAB 03/17/17 Cyanocobalamin* (Vitamin B12*) 500 Mcg Tab, 500 MCG PO DAILY, TAB 03/17/17 Famotidine* (Famotidine*) 20 Mg Tablet, 20 MG PO BID, #60 TAB 03/17/17 Discontinued Reported Medications Gabapentin* (Gabapentin*) 600 Mg Tablet, PO TID 08/20/13 Levetiracetam* (Levetiracetam*) 500 Mg Tablet, PO DAILY 08/20/13 Benazepril Hcl* (Lotensin*) 40 Mg Tablet, 40 MG PO DAILY 08/20/13 Pravastatin Sodium* (Pravastatin Sodium*) 20 Mg Tablet, 20 MG PO HS 08/20/13 Hydrochlorothiazide* (Hydrochlorothiazide*) 25 Mg Tab, 25 MG PO DAILY 08/20/13 Famotidine* (Famotidine*) 40 Mg/5 Ml Oral.susp, 20 MG PO BID 08/20/13 Amlodipine Besylate* (Amlodipine Besylate*) 10 Mg Tablet, 10 MG PO DAILY 08/20/13 Sertraline Hcl* (Sertraline Hcl*) 100 Mg Tablet, 100 MG PO DAILY 08/20/13 Fish Oil* (Fish Oil*) 1,000 Mg Cap, 1000 MG PO DAILY 08/20/13 Acetaminophen (TYLENOL 500 MG TAB) 500 Mg Tab, 500 MG PO Y 08/20/13 Allopurinol* (Zyloprim*) 300 Mg Tablet 01/16/11 Follow-up Plan PCP in one week Primary Care Provider Not On Staff Doctor Pending Labs Laboratory Tests Test 03/18/17 17:20 Bedside Glucose 92mg/dL (70-220) GWENDOLYN PHILLIPS MD Mar 19, 2017 13:27
== END 2017-03-19 18:11 | disposition home or self-care (01) ==
LOC: E/R 14:06 → MS4 16:16
PROVIDERS: ADMIT Internal Medicine; ATTEND Internal Medicine
DX: R07.89 Other chest pain (principal); F41.9 Anxiety disorder, unspecified; I10 Essential (primary) hypertension; G40.909 Epilepsy, unspecified, not intractable, without status epilepticus; M54.9 Dorsalgia, unspecified; G89.29 Other chronic pain; F32.9 Major depressive disorder, single episode, unspecified; M10.9 Gout, unspecified; E78.5 Hyperlipidemia, unspecified; E11.9 Type 2 diabetes mellitus without complications; Z85.028 Personal history of other malignant neoplasm of stomach
CPT/HCPCS: 36415; 71010; 80048; 80053; 80061; 80307; 82550; 82553; 82962; 83036; 83735; 83880; 84439; 84443; 84484; 84560; 85025; 85610; 85730; 93005; 93306; 99285; G0378; J1650; 99217